=== PATIENT | female | born 1950 | race Hispanic/Latino ===

== ENCOUNTER 2017-07-13 09:17 | Outpatient (CLI) | payer BC | END 2017-07-13 09:18 | disposition home or self-care (01) | LOC: BICMAMMO 09:17 | PROVIDERS: ATTEND Family Medicine | DX: Z13.820 Encounter for screening for osteoporosis (principal); M85.89 Other specified disorders of bone density and structure, multiple sites | CPT/HCPCS: 77063; 77067; 77080 ==

== ENCOUNTER 2017-07-29 08:24 | Outpatient (CLI) | payer BC | END 2017-07-29 08:25 | disposition home or self-care (01) | LOC: BICMAMMO 08:24 | PROVIDERS: ATTEND Family Medicine | DX: N64.89 Other specified disorders of breast (principal) | CPT/HCPCS: G0279 ==

== ENCOUNTER 2018-05-31 12:24 | Outpatient (CLI) | payer MEDICARE ==
--- NOTE | 2018-05-31 13:41 | MRI ---
MRI Brain WO Con: 05/31/2018 12:00 AM CLINICAL HISTORY: Persistent headaches, left-sided. COMPARISON: None. FINDINGS: Extra axial spaces: Normal in size and morphology for the patient's age. Hemorrhage: None. Ventricular system: Normal in size and morphology for the patient's age. Basal cisterns: Normal. Cerebral parenchyma: Microvascular ischemic changes. Midline shift: None. Cerebellum: Normal. Brainstem: Normal. Paranasal sinuses:Clear Negative left intraocular lens is absent. IMPRESSION:No acute intracranial abnormality.
== END 2018-05-31 12:25 | disposition home or self-care (01) ==
LOC: SCSMRI 12:24
PROVIDERS: ATTEND Family Medicine
DX: R51 Headache (principal)
CPT/HCPCS: 70551

== ENCOUNTER 2018-08-03 08:44 | Outpatient (CLI) | payer MEDICARE ==
--- NOTE | 2018-08-03 09:12 | MMO ---
Bilateral MAMMO Bilat Screen [facility]. CLINICAL HISTORY: Patient is 67 years old and is seen for screening. The patient has the following family history of breast cancer: maternal aunt, great. The patient has no personal history of cancer. VIEWS: The views performed were: bilateral craniocaudal with tomosynthesis and bilateral mediolateral oblique with tomosynthesis. FILMS COMPARED: The present examination has been compared to prior imaging studies performed at [facility] on 07/13/2017 and 07/29/2017. MAMMOGRAM FINDINGS: The breasts are heterogeneously dense, which could obscure a lesion on mammography. There are benign appearing calcifications seen in the right breast. There are no suspicious masses, suspicious calcifications, or new areas of architectural distortion. IMPRESSION: THERE IS NO MAMMOGRAPHIC EVIDENCE OF MALIGNANCY. A ROUTINE FOLLOW-UP MAMMOGRAM IN 1 YEAR IS RECOMMENDED. THE RESULTS OF THIS EXAM WERE SENT TO THE PATIENT. ACR BI-RADS Category 2 - Benign finding MAMMOGRAPHY NOTE: 1. A negative mammogram report should not delay a biopsy if a dominant of clinically suspicious mass is present. 2. Approximately 10% to 15% of breast cancers are not detected by mammography. 3. Adenosis and dense breasts may obscure an underlying neoplasm.
== END 2018-08-03 08:45 | disposition home or self-care (01) ==
LOC: BICMAMMO 08:44
PROVIDERS: ATTEND Family Medicine
DX: Z12.31 Encounter for screening mammogram for malignant neoplasm of breast (principal); Z80.3 Family history of malignant neoplasm of breast
CPT/HCPCS: 77063; 77067

== ENCOUNTER 2019-06-29 08:29 | Outpatient (CLI) | payer MEDICARE ==
--- NOTE | 2019-06-29 09:54 | MRI ---
MRI OF THE LUMBAR SPINE WITHOUT CONTRAST: COMPARISON: None. HISTORY: Bilateral leg weakness. TECHNIQUE: Multiplanar, multisequence MR images were obtained of the lumbar spine without contrast. FINDINGS: Mild generalized disk desiccation is seen. The vertebral bodies demonstrate normal height and alignm ent without fracture or subluxation. The prevertebral and paraspinal soft tissues were unremarkable. There are 5 [id number] vertebral bodies. The S1 segment has a left transverse process and is sacralized along the right aspect. The conus medullaris terminates normally at L1. L1-2: Unremarkable. L2-3: Unremarkable. L3-4: There is a minimal generalized concentric disk bulge. No posterior facet arthrosis. Minimal central canal stenosis. Mild bilateral neural foraminal stenosis. L4-5: There is a minimal generalized concentric disk bulge which extends to a slightly greater ascen t to the left subarticular region. No posterior facet arthrosis. Mild central canal stenosis. Mode rate left and mild right neural foraminal stenosis. L5-S1: No significant bulge or protrusion. Moderate bilateral posterior facet arthrosis. No centra l canal stenosis. Mild bilateral neural foraminal stenosis. IMPRESSION: Degenerative changes of the lumbar spine as above. POS: [facility]
== END 2019-06-29 08:30 | disposition home or self-care (01) ==
LOC: SCSMRI 08:29
PROVIDERS: ATTEND Physician Assistant Medical
DX: R29.898 Other symptoms and signs involving the musculoskeletal system (principal); M48.062 Spinal stenosis, lumbar region with neurogenic claudication; M47.816 Spondylosis without myelopathy or radiculopathy, lumbar region
CPT/HCPCS: 72148

== ENCOUNTER 2019-07-21 14:08 | Outpatient (CLI) | payer MEDICARE ==
--- NOTE | 2019-07-21 14:49 | ULT ---
BILATERAL CAROTID DUPLEX ULTRASOUND: 07/21/19 HISTORY: TIA. TECHNIQUE: Cash scale ultrasound with color flow and spectral Doppler imaging of the extracranial carotid artery system is performed bilaterally. FINDINGS: There is plaque formation on both sides. The peak systolic velocity in the right ICA measures 87 cm/s with an end diastolic velocity of 19 cm/s and systolic ratio of 0.75. The peak systolic velocity in the left ICA measures 91 cm/s with an end diastolic velocity of 15 cm/ s and systolic ratio of 0.97. Flow in both vertebral arteries remains antegrade. IMPRESSION: No evidence of hemodynamically significant stenosis. POS: [facility]
--- NOTE | 2019-07-21 17:31 | CT ---
HEAD CT WITHOUT CONTRAST: 07/21/19 COMPARISON: None. HISTORY: Confusion for three weeks. TECHNIQUE: Axial CT imaging at 4.8 mm intervals from vertex through skull base without contrast. FINDINGS: Imaged paranasal sinuses and mastoid air cells are well aerated. No displaced calvarial fracture, int racranial hemorrhage, midline shift, or mass effect. IMPRESSION: No acute findings. POS: [facility]
== END 2019-07-21 14:09 | disposition home or self-care (01) ==
LOC: SCSULT 14:08
PROVIDERS: ATTEND Physician Assistant Medical
DX: G45.9 Transient cerebral ischemic attack, unspecified (principal); R41.0 Disorientation, unspecified
CPT/HCPCS: 70450; 93880

== ENCOUNTER 2019-08-07 09:06 | Outpatient (CLI) | payer MEDICARE ==
--- NOTE | 2019-08-07 09:31 | MMO ---
Bilateral MAMMO Bilat Screen [facility]. CLINICAL HISTORY: Patient is 68 years old and is seen for screening. The patient has the following family history of breast cancer: maternal aunt, great. The patient has no personal history of cancer. VIEWS: The views performed were: bilateral craniocaudal with tomosynthesis and bilateral mediolateral oblique with tomosynthesis. FILMS COMPARED: The present examination has been compared to prior imaging studies performed at [facility] on 07/13/2017, 07/29/2017 and 08/03/2018, and at [facility] [place] on 04/06/2016. This study has been interpreted with the assistance of computer-aided detection. MAMMOGRAM FINDINGS: The breasts are heterogeneously dense, which could obscure a lesion on mammography. There are no suspicious masses, suspicious calcifications, or new areas of architectural distortion. IMPRESSION: THERE IS NO MAMMOGRAPHIC EVIDENCE OF MALIGNANCY. A ROUTINE FOLLOW-UP MAMMOGRAM IN 1 YEAR IS RECOMMENDED. THE RESULTS OF THIS EXAM WERE SENT TO THE PATIENT. ACR BI-RADS Category 1 - Negative MAMMOGRAPHY NOTE: 1. A negative mammogram report should not delay a biopsy if a dominant of clinically suspicious mass is present. 2. Approximately 10% to 15% of breast cancers are not detected by mammography. 3. Adenosis and dense breasts may obscure an underlying neoplasm. Reported by: CORAL GURROLA MD Electonically Signed: [id number]
--- NOTE | 2019-08-07 09:39 | BD ---
BONE DENSITOMETRY: INDICATION: Postmenopausal screening. FINDINGS: Lumbar Spine: BMD (g/cm2) L1 0.864 T-Score: -1.1 L2 0.969 T-Score: -0.5 L3 1.081 T-Score: 0.0 L4 1.087 T-Score: 0.2 L1-L4 1.006 T-Score: -0.4 Femoral Neck: 0.699 T-Score: -1.3 Total Femur: 0.815 T-Score: -1.0 Impression: 1. Bone mineral density of the lumbar spine within normal range. 2. Bone mineral density of the femoral neck indicates osteopenia. TEN-YEAR FRACTURE RISK: Major osteoporotic fracture: 8.5%. Hip fracture: 0.9%. POS: [facility]
== END 2019-08-07 09:07 | disposition home or self-care (01) ==
LOC: BICMAMMO 09:06
PROVIDERS: ATTEND Physician Assistant Medical
DX: Z12.31 Encounter for screening mammogram for malignant neoplasm of breast (principal); M85.859 Other specified disorders of bone density and structure, unspecified thigh; Z80.3 Family history of malignant neoplasm of breast
CPT/HCPCS: 77063; 77067; 77080